=== PATIENT | female | born 1975 | race Caucasian/White ===

== ENCOUNTER 2021-09-27 12:54 | Emergency (ER) | payer MEDICAID, OTHER ==
[~2021-09-27] VITALS: Ht 152.4 cm; Wt 95.0 kg
[2021-09-27] MEDS ORDERED: KETOROLAC 60MG/2ML VIAL IM ONE (15:00)
[2021-09-27] MEDS ORDERED: DIPHENHYDRAMINE 25MG CAPSULE PO ONE (15:00)
[2021-09-27 15:22] VITALS: BP 125/82
== END 2021-09-27 17:25 | disposition home or self-care (01) ==
LOC: ER 12:54
DX: R51.9 Headache, unspecified (principal); E11.9 Type 2 diabetes mellitus without complications
CPT/HCPCS: 70450; 81025; 96372; 99284; J1885; Q0163

== ENCOUNTER 2023-08-04 02:32 | Emergency (ER) | payer OTHER ==
[~2023-08-04] VITALS: Ht 152.4 cm; Wt 107.0 kg
[2023-08-04 02:41] VITALS: O2SAT 98
[2023-08-04 03:12] LABS: CLARITY URINE TURBID (CLEAR); COLOR URINE RED (YELLOW); GLUCOSE URINE NEGATIVE (NEGATIVE); KETONES URINE NEGATIVE (NEGATIVE); LEUKOCYTE ESTERASE URINE 3+ (NEGATIVE); NITRITE URINE POSITIVE (NEGATIVE); OCCULT BLOOD URINE 3+ (NEGATIVE); PROTEIN URINE 2+ (NEGATIVE); SPECIFIC GRAVITY URINE 1.022 (1.005-1.030); UROBILINOGEN URINE 0.2 E.U./dL (0.2-1.0)
[2023-08-04 03:45] LABS: CARBON DIOXIDE 26 mEq/L (21-32); CHLORIDE 101 mEq/L (98-107); POTASSIUM 3.5 mEq/L (3.5-5.1); SODIUM 136 mEq/L (136-145)
[2023-08-04 03:46] LABS: CALCIUM 9.4 mg/dL (8.7-10.4)
[2023-08-04 03:50] LABS: HEMATOCRIT 36.3 % (36.0-48.0); HEMOGLOBIN 12.5 g/dL (12.0-16.0); MEAN CORPUSCULAR HGB CONC 34.6 g/dL (31.0-37.0); MEAN CORPUSCULAR VOLUME 83.9 fL (81.0-99.0); PLATELET 355 x1000/uL (130-400); RED BLOOD CELL COUNT 4.32 mill/uL (4.2-5.4); RED CELL DISTRIBUTION WIDTH 14.8 % (11.6-14.6); WHITE BLOOD COUNT 11.3 x1000/uL (4.5-11.0)
[2023-08-04 03:51] LABS: CREATININE 0.6 mg/dL (0.6-1.0); GLUCOSE 112 mg/dL (70-105); UREA NITROGEN BLOOD 15 mg/dL (9-23)
[2023-08-04 04:10] LABS: BACTERIA URINE 1+; RBC URINE TNTC /hpf (0-2); SQUAMOUS EPITHELIAL CELL URINE 1+ /lpf (RARE/1+); WBC URINE TNTC /hpf (0-2)
[2023-08-04] MEDS ORDERED: KETOROLAC 30MG/ML VIAL IM ONE (04:15)
[2023-08-04] MEDS ORDERED: CEFP100T8 MT (05:56)
[2023-08-04] MEDS: LIDOCAINE HCL 1% 20ML VIAL (Pyxis) INJ INFIL NR (06:31)
[2023-08-04] MEDS: CEFTRIAXONE SODIUM 1G VIAL IM NR (06:31)
[2023-08-04] MEDS: KETOROLAC 30MG/ML VIAL IM NR (06:31)
[2023-08-04 07:17] VITALS: BP 117/62; PULSE 79; RESP 16; TEMP 96.8
== END 2023-08-04 07:18 | disposition home or self-care (01) ==
LOC: ER 02:32
DX: R30.0 Dysuria (principal); R35.0 Frequency of micturition; R31.9 Hematuria, unspecified
CPT/HCPCS: 80048; 81003; 81025; 85027; 86850; 86900; 86901; 87086; 87186; 87077; 36415; 74176; 76830; 76856; 96372; 99285; J0696; J1885; J3490; Z7610 ×2